=== PATIENT | female | born 1965 | race Caucasian/White ===

== ENCOUNTER 2017-07-21 19:31 | Emergency (ER) | payer MEDICAID ==
[~2017-07-21] VITALS: Ht 170.2 cm; Wt 93.2 kg
[2017-07-21] MEDS ORDERED: GABA-531 PO (19:46)
[2017-07-21 21:45] VITALS: BP 141/76
[2017-07-21] MEDS ORDERED: KETOROLAC TROMETHAMINE 10 MG TABLET PO ONE (21:45)
== END 2017-07-21 21:50 | disposition home or self-care (01) ==
LOC: EMS 19:33
DX: G56.02 Carpal tunnel syndrome, left upper limb (principal); G89.29 Other chronic pain
CPT/HCPCS: 29280; 99284